=== PATIENT | male | born 1960 | race Caucasian/White ===

== ENCOUNTER 2020-06-13 15:14 | Emergency (ER) | payer OTHER | END 2020-06-13 15:44 | disposition home or self-care (01) | LOC: JVIRT 15:14 | DX: Z20.822 Contact with and (suspected) exposure to COVID-19 (principal) | CPT/HCPCS: C9803; G2251-GT; Q3014-GT; U0003 ==

== ENCOUNTER 2020-10-23 04:31 | Day surgery (SDC) | payer OTHER ==
[2020-10-21 16:50] VITALS: BMI 26.4
[2020-10-23 10:35] VITALS: TEMP 97.6
[2020-10-23 11:14] VITALS: BP 150/78; PULSE 65
== END 2020-10-23 11:10 | disposition home or self-care (01) ==
LOC: JASU-ENDO 04:31
PROVIDERS: ATTEND Internal Medicine Gastroenterology
PROC: 0DBL8ZX Excision of Transverse Colon, Via Natural or Artificial Opening Endoscopic, Diagnostic (ICD-10-PCS; 2020-10-23)
PROC: 0DBN8ZX Excision of Sigmoid Colon, Via Natural or Artificial Opening Endoscopic, Diagnostic (ICD-10-PCS; principal; 2020-10-23 09:00)
DX: Z12.11 Encounter for screening for malignant neoplasm of colon (principal); D12.3 Benign neoplasm of transverse colon; D12.5 Benign neoplasm of sigmoid colon
CPT/HCPCS: 88305-TC

== ENCOUNTER 2022-04-10 21:21 | Emergency (ER) | payer OTHER ==
[2022-04-10 21:37] VITALS: BP 136/83; PULSE 80; RESP 16; TEMP 98.3; BMI 26.4
== END 2022-04-10 22:52 | disposition home or self-care (01) ==
LOC: FER 21:21
PROC: 0HQ0XZZ Repair Scalp Skin, External Approach (ICD-10-PCS; principal; 2022-04-10)
DX: S09.90XA Unspecified injury of head, initial encounter (principal); S01.81XA Laceration without foreign body of other part of head, initial encounter; W01.198A Fall on same level from slipping, tripping and stumbling with subsequent striking against other object, initial encounter
CPT/HCPCS: 70450-TC; 99284-25

== ENCOUNTER 2022-04-18 10:55 | Emergency (ER) | payer OTHER ==
[2022-04-18] MEDS ORDERED: DIPHTH,PERTUSS(ACELL),TET 0.5 ML DISP.SYRIN IM ONE ×2 (10:59→11:01)
[2022-04-18 11:00] VITALS: BP 161/89; PULSE 82; RESP 18; TEMP 98; BMI 26.4
== END 2022-04-18 11:08 | disposition home or self-care (01) ==
LOC: FER 10:55
DX: Z48.02 Encounter for removal of sutures (principal)
CPT/HCPCS: 90471; 90715; 96372; 99281-25

== ENCOUNTER 2023-09-12 04:23 | Day surgery (SDC) | payer OTHER ==
[2023-09-08 11:42] VITALS: BMI 27.6
[2023-09-12 08:02] VITALS: RESP 18
[2023-09-12] MEDS ORDERED: MIDAZOLAM HCL 2 MG/2 ML SINGLE DOSE VIAL ONE (11:05)
[2023-09-12] MEDS ORDERED: FENTANYL CITRATE/PF 50 MCG/ML VIAL ONE (11:05)
[2023-09-12] MEDS: DEXAMETHASONE SOD PHOSPHATE 10 MG/1 ML VIAL IVPUSH ONE (11:32)
[2023-09-12 13:40] VITALS: BP 138/88; PULSE 69; TEMP 98
== END 2023-09-12 12:30 | disposition home or self-care (01) ==
LOC: JASU-SURG 04:23
PROVIDERS: ATTEND Urology
PROC: 0TF4XZZ Fragmentation in Left Kidney Pelvis, External Approach (ICD-10-PCS; principal; 2023-09-12 10:00)
DX: N20.0 Calculus of kidney (principal)
CPT/HCPCS: J1100